=== PATIENT | male | born 1985 | race Caucasian/White ===

== ENCOUNTER → 2017-10-03 | Outpatient (CLI) | payer BC ==
--- NOTE | 2017-10-03 09:08 | XR ---
EXAMINATION TYPE: XR elbow limited LT DATE OF EXAM: 10/03/2017 CLINICAL HISTORY: Increasing pain. TECHNIQUE: Frontal and lateral images of the left elbow are obtained. COMPARISON: None FINDINGS: There is no acute fracture/dislocation evident in the left elbow. No abnormal fat pad sig ns are seen. The overlying soft tissue appears unremarkable. IMPRESSION: There is no acute fracture or dislocation in the left elbow. Unremarkable study.
== END | disposition home or self-care (01) ==
LOC: RADXRYALE 08:36
PROVIDERS: ATTEND Family Medicine
DX: M25.522 Pain in left elbow (principal)

== ENCOUNTER 2017-12-28 20:25 | Emergency (ER) | payer BC ==
[2017-12-28 20:40] VITALS: BP 158/86; PULSE 80; RESP 18; TEMP 98.6
[2017-12-28] MEDS ORDERED: LIDOCAINE 1% INJ 10MG/ML (20 ML MDV) SQ STA (20:54)
--- NOTE | 2017-12-28 21:13 | ED ---
General Adult HPI - General Chief complaint: Wound/Laceration Stated complaint: Lac/Wrist Time Seen by Provider: 12/28/17 20:48 Source: patient, RN notes reviewed Mode of arrival: ambulatory Limitations: no limitations - History of Present Illness Initial comments: 32-year-old male presenting to the emergency room today with chief complaint of laceration to the left forearm. Patient was using a box coverer hand and slipped causing laceration. States tetanus is up-to-date. Denies any other complaints or symptoms. Patient denies any recent fever, chills, shortness of breath, chest pain, back pain, abdominal pain, nausea or vomiting, numbness or tingling , dysuria or hematuria, constipation or diarrhea, headaches or visual changes, or any other complaints. - Related Data Allergies Allergy/AdvReac Type Severity Reaction Status Date / Time No Known Allergies Allergy Verified 12/28/17 20:40 Review of Systems ROS Statement: Those systems with pertinent positive or pertinent negative responses have been documented in the HPI. ROS Other: All systems not noted in ROS Statement are negative. Past Medical History Past Medical History: No Reported History History of Any Multi-Drug Resistant Organisms: None Reported Past Surgical History: Orthopedic Surgery Additional Past Surgical History / Comment(s): left knee Past Psychological History: No Psychological Hx Reported Smoking Status: Never smoker Past Alcohol Use History: Occasional Past Drug Use History: None Reported General Exam - General Exam Comments Initial Comments: General: The patient is awake and alert, in no distress, and does not appear acutely ill. Neck: The neck is supple, there is no tenderness or JVD. Cardiovascular: There is a regular rate and rhythm. No murmur, rub or gallop is appreciated. Respiratory: Lungs are clear to auscultation, respirations are non-labored, breath sounds are equal. No wheezes, stridor, rales, or rhonchi. Musculoskeletal: Full range of motion. Sensation intact. Radial pulses 2+. Strength 5/5. Neurological: A&O x 3. CN II-XII intact, There are no obvious motor or sensory deficits. Coordination appears grossly intact. Speech is normal. Skin: 1 cm laceration to the volar aspect of the left forearm. Psychiatric: Normal mood and affect. Limitations: no limitations Course Vital Signs 12/28/17 20:35 Temperature 98.6 F Pulse Rate 80 Respiratory 18 Rate Blood Pressure 158/86 O2 Sat by Pulse 98 Oximetry Procedures - Procedures Initial comment: 1 cm linear laceration to the left forearm. The skin was anesthetized with 1% lidocaine. The laceration was then cleansed with and irrigated with normal saline. The wound was inspected, and there was no evidence of injury to deep structures. No foreign body was noted in the wound. A total of 3 skin sutures were placed utilizing 4-0 nylon. Disposition Clinical Impression: Laceration Disposition: HOME SELF-CARE Condition: Good Instructions: Laceration (ED) Additional Instructions: Please return to the emergency room in 8-10 days to have sutures removed. Please watch for any signs of infection which may include increased pain, swelling, redness, fever or chills. Please return to emergency room for any signs of infection do occur. Please use clean soap and water over the area to prevent scabbing over your stitches. Please leave wound covered for the first 24-48 hours and then leave wound open to air. Please return to the emergency room for any other concerns. Is patient prescribed a controlled substance at d/c from ED?: No Referrals: Maninder Espinal DO [Primary Care Provider] - 1-2 days Time of Disposition: 21:39
== END 2017-12-28 21:48 | disposition home or self-care (01) ==
LOC: EC 20:25
DX: S51.812A Laceration without foreign body of left forearm, initial encounter (principal); W26.8XXA Contact with other sharp object(s), not elsewhere classified, initial encounter; Y93.89 Activity, other specified
CPT/HCPCS: 99282; 12001; J2001

== ENCOUNTER → 2018-08-22 | Outpatient (CLI) | payer BC ==
--- NOTE | 2018-08-22 16:31 | MR ---
EXAMINATION TYPE: MR shoulder RT wo con DATE OF EXAM: 08/22/2018 COMPARISON: None HISTORY: Pain Right Shoulder with Limited ROM x 6 Months TECHNIQUE: Multiplanar, multisequence imaging of the right shoulder is performed without contrast. FINDINGS: Rotator Cuff: There is increased signal within the supraspinatus tendon greater than expected for typ ical artifact from the angle of imaging. Some internal strain or derangement may be present. Small am ount of fluid is in the subacromial bursa and subdeltoid bursa. Perforation is not identified. Modera te tendinosis is suspected. Acromioclavicular Joint: Mildly hypertrophied Glenohumeral Joint: Preserved Labrum: The labrum appears grossly intact given limitation of non-arthrogram study. Biceps Tendon: The long head of biceps is in normal location within bicipital groove. There is modera te fluid surrounding the long head of the biceps tendon compatible with moderate tendinosis. Bone marrow signal: There is increased signal within the proximal metaphysis of the right humerus sug gestive for medullary infarct. Other: No additional significant abnormality is appreciated. IMPRESSION: 1. Moderate tendinosis of the supraspinatus tendon and long head of the biceps tendon. 2. There may be some increased signal within the substance of the distal supraspinatus tendon, not co mpletely attributable to expected artifact. Internal strain could be considered. Perforation is not e ntirely excluded. 3. 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
== END | disposition home or self-care (01) ==
LOC: RADMRIMAIN 15:30
PROVIDERS: ATTEND Family Medicine
DX: M67.813 Other specified disorders of tendon, right shoulder (principal)

== ENCOUNTER 2023-12-07 10:31 | Day surgery (SDC) | payer BC ==
[2023-12-02 15:54] VITALS: BMI 26.9
[~2023-12-07 10:31] MED LIST: ONDANSETRON 4 MG/2 ML VIAL IVP PRN
[2023-12-07] MEDS: LIDOCAINE 1% (10MG/ML) FOR IV START INTRADERMA PRN (11:04)
[2023-12-07] MEDS: LACTATED RINGERS 1,000 ML IV SCH (11:04)
[2023-12-07 11:42] VITALS: PULSE 64; TEMP 97.9
[2023-12-07] MEDS ORDERED: PROPOFOL 10 MG/ML 20 ML VIAL IV ONE (12:28)
[2023-12-07] MEDS ORDERED: LIDOCAINE 1% INJ 10MG/ML (20 ML MDV) ONE (12:28)
[2023-12-07] MEDS ORDERED: MIDAZOLAM 2 MG/2 ML VIAL ONE (12:28)
[2023-12-07] MEDS ORDERED: fentaNYL (PF) 50 MCG/ML 2 ML AMP ONE (12:28)
--- NOTE | 2023-12-07 12:40 | P.PCN ---
Date of Procedure: 12/07/23 Procedure(s) Performed: BRIEF HISTORY: Patient is a []-year-old, pleasant, male discomfort upper endoscopy as above evaluation of longstanding history of GERD. He has intermittent symptoms 3-4 times a week and usually takes Tums or Pepcid as needed. PROCEDURE PERFORMED: Esophagogastroduodenoscopy biopsy. PREOPERATIVE DIAGNOSIS: History of GERD. IV sedation per anesthesia. PROCEDURE: After informed consent was obtained, the patient was brought into the endoscopy unit. IV sedation was administered by Anesthesia under continuous monitoring. Initially the Olympus GIF-140 video endoscope was inserted into the mouth. Esophagus intubated without any difficulty. It was gradually advanced into the stomach and duodenum and carefully examined. The bulb and the second part of the duodenum appeared normal. The scope at this time was withdrawn to the stomach, adequately insufflated with air, and upon careful examination, mucosa of the antrum had mild gastritis and biopsies were done from this area., body, cardia and the fundus appeared normal. The scope was then withdrawn into the esophagus. The GE junction was located at 42 cm from the incisors. Small hiatal hernia noted. Linear erosions noted in the distal esophagus consistent with LA grade B reflux esophagitis. The esophagus appeared normal. There were no erosions or ulcerations seen and the patient tolerated the procedure well. IMPRESSION: 1. Small hiatal hernia. 2. Linear erosions of the distal esophagus consistent with LA grade B reflux esophagitis 3. Mild antral gastric. RECOMMENDATIONS: The findings of this examination were discussed with the patient as well as his family. He was advised to follow-up with the biopsy results. He will be started on Prilosec 20 mg daily to be taken half hour before breakfast and follow antireflux measures..
[2023-12-07 14:27] VITALS: BP 116/74; RESP 20
== END 2023-12-07 13:29 | disposition home or self-care (01) ==
LOC: ORWHC2ENDO 10:31
PROVIDERS: ATTEND Internal Medicine Gastroenterology
DX: K44.9 Diaphragmatic hernia without obstruction or gangrene (principal); K21.9 Gastro-esophageal reflux disease without esophagitis; F17.220 Nicotine dependence, chewing tobacco, uncomplicated; Z79.899 Other long term (current) drug therapy
CPT/HCPCS: 88305; 43239; J2250; J2001; J3010; J2704

== ENCOUNTER 2024-09-03 17:33 | Emergency (ER) | payer BC ==
[2024-09-03 17:46] VITALS: TEMP 97.8
--- NOTE | 2024-09-03 17:53 | ED ---
Chest Pain HPI - General Chief Complaint: Chest Pain Stated Complaint: chest pain Time Seen by Provider: 09/03/24 17:52 Source: patient, RN notes reviewed, old records reviewed Mode of arrival: ambulatory Limitations: no limitations - History of Present Illness Initial Comments: This is a 38-year-old male to the ER for evaluation of chest pain. Patient has about 1 week of pain muscle spasm and chest pain on the right chest now to the left chest patient states he went from the right chest to the left chest today not worse when he presses on it but it feels like his chest is tight and he feels like it is moving to his back. Patient has history of high blood pressure and blood pressure was elevated today 160/90. Patient does not take blood press ure medication. It is not feel worse with movement but he did notice the pain worsening when he stretched this morning and that was prior to it going left to right and now back left into his back. His concern is chest pain and heart, blood pressure again elevated at home. No shortness of breath, no recent illnesses fevers cough or congestion symptoms began during a wrestling event 1 week ago MD Complaint: chest pain, other (chest wall pain) -: days(s) (Pain for a week but worsening today right side of chest now in the left lateral chest to the back) Onset: during rest (And after stretching) Pain Location: substernal, left chest Pain Radiation: back Severity: moderate Severity scale (1-10): 7 Quality: tightness, sharp Consistency: intermittent Improves With: nothing Worsens With: nothing Anginal Symptoms: other (0) Other Symptoms: other (0) Treatments Prior to Arrival: none - Related Data Home Medications Medication Instructions Recorded Confirmed Multi Greens Powder 1 dose PO DAILY 12/02/23 12/02/23 Multivitamins, Thera [Multivitamin 1 tab PO DAILY 12/02/23 12/02/23 (formulary)] Mushroom Supplement 1 tab PO DAILY 12/02/23 12/02/23 Turmeric (Unknown Dose) 1 tab PO DAILY 12/02/23 12/02/23 Vitamin D (Unknown Dose) 1 tab PO DAILY 12/02/23 12/02/23 Allergies Allergy/AdvReac Type Severity Reaction Status Date / Time No Known Allergies Allergy Verified 12/02/23 15:03 Review of Systems ROS Statement: Those systems with pertinent positive or pertinent negative responses have been documented in the HPI. ROS Other: All systems not noted in ROS Statement are negative. EKG Findings - EKG Comments: EKG Findings:: EKG is sinus 80 AL 152 QRS 96 QTc 387 - EKG Results: EKG: interpreted by KAYLEN Past Medical History Past Medical History: GERD/Reflux Additional Past Medical History / Comment(s): "Heartburn since age 14." History of Any Multi-Drug Resistant Organisms: None Reported Past Surgical History: Orthopedic Surgery Additional Past Surgical History / Comment(s): Left knee surgery. Past Anesthesia/Blood Transfusion Reactions: No Reported Reaction, Motion Sickness Past Psychological History: No Psychological Hx Reported Smoking Status: Never smoker - Past Family History Mother Family Medical History: Cancer Additional Family Medical History / Comment(s): Throat cancer. Father Family Medical History: Deep Vein Thrombosis (DVT) Additional Family Medical History / Comment(s): Dad had DVT's in legs after surgery. General Exam - General Exam Comments Initial Comments: no chest wall tenderness Limitations: no limitations General appearance: alert, in no apparent distress Head exam: Present: atraumatic, normocephalic, normal inspection Eye exam: Present: normal appearance, PERRL, EOMI. Absent: scleral icterus, conjunctival injection, periorbital swelling ENT exam: Present: normal exam, mucous membranes moist Neck exam: Present: normal inspection. Absent: tenderness, meningismus, lymphadenopathy Respiratory exam: Present: normal lung sounds bilaterally. Absent: respiratory distress, wheezes, rales, rhonchi, stridor Cardiovascular Exam: Present: regular rate, normal rhythm, normal heart sounds. Absent: systolic murmur, diastolic murmur, rubs, gallop, clicks GI/Abdominal exam: Present: soft, normal bowel sounds. Absent: distended, tenderness, guarding, rebound, rigid Extremities exam: Present: normal inspection, full ROM, normal capillary refill. Absent: tenderness, pedal edema, joint swelling, calf tenderness Back exam: Present: normal inspection Neurological exam: Present: alert, oriented X3, CN II-XII intact Psychiatric exam: Present: normal affect, normal mood Skin exam: Present: warm, dry, intact, normal color. Absent: rash Course Vital Signs 09/03/24 17:44 Temperature 97.8 F Pulse Rate 85 Respiratory 20 Rate Blood Pressure 176/99 O2 Sat by Pulse 98 Oximetry - Reevaluation(s) Reevaluation #1: 09/03/24 19:27 Medical records reviewed No prior ER evaluations for chest pain or cardiac event Reevaluation #2: 09/03/24 19:28 Patient symptoms are improved here in the ER blood pressure is improving without treatment Reevaluation #3: 09/03/24 19:28 Patient informed of results questions answered Reevaluation #4: Was pt. sent in by a medical professional or institution (, BERTO, [employer] HAT [employer]UX ADMINISTRATOR, urgent care, hospital, or alf...) When possible be specific @ -no Did you speak to anyone other than the patient for history (EMS, parent, family, police, friend...)? What history was obtained from this source @ -no Did you review nursing and triage notes (agree or disagree)? Why? @ -agree Are old charts reviewed (outside hosp., previous admission, EMS record, old EKG, old radiological studies, urgent care reports/EKG's, alf records)? Report findings @ -yes Differential Diagnosis (chest pain, altered mental status, abdominal pain women, abdominal pain men, vaginal bleeding, weakness, fever, dyspnea, syncope, headache, dizziness, GI bleed, back pain, seizure, CVA, palpatations, mental health, musculoskeletal)? @ -prior EKG interpreted by me (3pts min.). @ -yes X-rays interpreted by me (1pt min.). @ -yes negative for acute disease CT interpreted by me (1pt min.). @ -no U/S interpreted by me (1pt. min.). @ -no What testing was considered but not performed or refused? (CT, X-rays, U/S, labs)? Why? @ -none What meds were considered but not given or refused? Why? @ -none Did you discuss the management of the patient with other professionals (jose grajeda i.e. , BERTO, [employer] ADMINISTRATOR, lab, RT, psych nurse, social services designee, funeral car chauffeur, teacher, horticultural technical officer, social work case manager)? Give summary @ -no Was smoking cessation discussed for >3mins.? @ -no Was critical care preformed (if so, how long)? @ -no Were there social determinants of health that impacted care today? How? (Homelessness, low income, unemployed, alcoholism, drug addiction, transportation, low edu. Level, literacy, decrease access to med. care, fpc, rehab)? @ -none Was there de-escalation of care discussed even if they declined (Discuss DNR or withdrawal of care, Hospice)? DNR status @ -no What co-morbidities impacted this encounter? (DM, HTN, Smoking, COPD, CAD, Cancer, CVA, ARF, Chemo, Hep., AIDS, mental health diagnosis, sleep apnea, morbid obesity)? @ -none Was patient admitted / discharged? Hospital course, mention meds given and route, prescriptions, significant lab abnormalities, going to OR and other pertinent info. @ - Undiagnosed new problem with uncertain prognosis? @ -no Drug Therapy requiring intensive monitoring for toxicity (Heparin, Nitro, Insulin, Cardizem)? @ -no Were any procedures done? @ -no Diagnosis/symptom? @ - Acute, or Chronic, or Acute on Chronic? @ -Acute Uncomplicated (without systemic symptoms) or Complicated (systemic symptoms)? @ -Complicated Side effects of treatment? @ -no Exacerbation, Progression, or Severe Exacerbation? @ -exacerbation Poses a threat to life or bodily function? How? (Chest pain, [place], [place], pneumonia, PE, COPD, DKA, ARF, appy, cholecystitis, CVA, Diverticulitis, Homicidal, Suicidal, threat to staff... and all critical care pts) @ -yes Reevaluation #5: Differential Chest Pain: Stable Angina, Unstable Angina, STEMI, NSTEMI Aortic Dissection, Pneumothorax, Musculoskeletal, Esophageal Spasm GERD, Cholecystitis, Pancreatitis, Zoster, this is not meant to be an all-inclusive list. Chest Pain MDM - MDM 38 male to ER for evaluation of chest pain patient is presenting for chest pain evaluation here in the ER right-sided chest pain now left-sided chest pain the patient has negative CT scan here in the ER blood pressure improved without treatment will continue to follow-up primary care regarding possible blood pressure medication, patient can be discharged home Disposition Clinical Impression: Atypical chest pain, Chest pain Disposition: HOME SELF-CARE Condition: Good Instructions (If sedation given, give patient instructions): Chest Pain (ED), Costochondritis (ED) Is patient prescribed a controlled substance at d/c from ED?: No Referrals: Maninder Espinal DO [Primary Care Provider] - 1-2 days Time of Disposition: 20:00
[2024-09-03] MEDS: PANTOPRAZOLE 40 MG/10 ML VIAL IVP STA (18:05)
[2024-09-03] MEDS: SODIUM CHLORIDE 0.9% 1,000 ML IV STA (18:05)
[2024-09-03] MEDS: MAG HYDROX/AL HYDROX/SIMETH 30 ML CUP PO STA (18:05)
[2024-09-03] MEDS: ONDANSETRON 4 MG/2 ML VIAL IVP STA (18:06)
[2024-09-03 18:10] LABS: Basophils % (A) 1 %; Eosinophils # (A) 0.1 k/uL (0-0.7); Eosinophils % (A) 2 %; HCT 46.7 % (39.0-53.0); HGB 15.6 gm/dL (13.0-17.5); Lymphocytes % (A) 35 %; MCH 31.2 pg (25.0-35.0); MCHC 33.4 g/dL (31.0-37.0); MCV 93.3 fL (80.0-100.0); Mean Platelet Volume 6.9; Monocytes # (A) 0.5 k/uL (0-1.0); Monocytes % (A) 9 %; Neutrophils # (A) 2.9 k/uL (1.3-7.7); Neutrophils % (A) 51 %; Platelet Count 252 k/uL (150-450); RDW 12.5 % (11.5-15.5); WBC 5.8 k/uL (3.8-10.6)
[2024-09-03 18:18] LABS: ALT 31 U/L (4-49); AST 31 U/L (17-59); African American GFR (CKD) >90 (>60 ml/min/1.73 sqM); Albumin 4.9 g/dL (3.5-5.0); Alkaline Phosphatase 39 U/L (38-126); Anion Gap 9 mmol/L; Blood Urea Nitrogen 18 mg/dL (9-20); Calcium 9.6 mg/dL (8.4-10.2); Carbon Dioxide 30 mmol/L (22-30); Chloride 100 mmol/L (98-107); Glucose 81 mg/dL (74-99); Lipase 168 U/L (23-300); Magnesium 2.3 mg/dL (1.6-2.3); Non-African American GFR(CKD) >90 (>60 ml/min/1.73 sqM); Potassium 4.5 mmol/L (3.5-5.1); Sodium 139 mmol/L (137-145); Total Bilirubin 0.6 mg/dL (0.2-1.3); Total Protein 7.8 g/dL (6.3-8.2)
[2024-09-03 18:27] LABS: NT-Pro-B-Type Natriuretic Pept <20 pg/mL
[2024-09-03 18:49] LABS: INR 0.9 (<1.2); Partial Thromboplastin Time 23.6 sec (22.0-30.0); Prothrombin Time 10.5 sec (10.0-12.5)
--- NOTE | 2024-09-03 19:39 | CT ---
EXAMINATION TYPE: CT angio chest CT DLP: 473.8 mGycm, Automated exposure control for dose reduction was used. DATE OF EXAM: 09/03/2024 6:59 PM COMPARISON: Chest radiograph from same day. Multiple CTs of the chest with most recent on . CLINICAL INDICATION:Male, 38 years old with history of pain; chest pain TECHNIQUE/CONTRAST: CTA scan of the thorax is performed with IV Contrast, patient injected with 100 mL of Isovue 370, MIP images are created and reviewed these are created on a separate workstation.. FINDINGS: Pulmonary Artery: There is no evidence for a filling defect within the pulmonary vasculature to sugge st acute pulmonary embolism. The pulmonary artery is of normal size. Lungs/Pleura: No evidence of focal consolidation, pleural effusion or pneumothorax. Airway: Large airways are patent. Nonspecific mild bronchiectasis of the proximal airways involving t he right lung. Heart: Heart is within normal limits for size. Vasculature: No evidence of aortic aneurysm. Mediastinum: Few nonenlarged lymph nodes are seen without gross evidence of adenopathy. There is a si mple fluid attenuated cystic structure seen in the left periaortic mediastinum extending inferiorly. No discrete solid components are associated enhancement appreciated. There are some pericardial reces s fluid appreciated. Musculoskeletal: No acute osseous abnormalities Soft Tissues/lymph nodes: Unremarkable. Lower neck: No significant findings. Upper Abdomen: Small round hyperattenuated focus within the spleen may represent a small hemangioma h owever evaluation is limited within the spleen given the phase of contrast. Small hiatal hernia. IMPRESSION: 1. No evidence of pulmonary embolism. 2. Nonspecific cystic finding in the mediastinum may represent loculated precardial recess fluid vers us other nonspecific finding such as a pericardial cyst versus other mediastinal cyst. If clinically warranted consider follow-up with chest MRI with IV contrast on a nonemergent outpatient basis. 3. Nonspecific mild bronchiectasis involving the proximal right lung airways predominantly within the lower lobe. [facility], , 09/03/2024 7:37 PM
[2024-09-03 20:10] VITALS: BP 158/102; PULSE 80; RESP 16
== END 2024-09-03 20:10 | disposition home or self-care (01) ==
LOC: EC 17:33
DX: R07.89 Other chest pain (principal)
CPT/HCPCS: 36415; 93005; 85379; 83880; 80053; 83690; 83735; 84484; 85025; 85610; 85730; 71275; 99285; 96374; 96375; 96361; J2405; Q9967; J2470